=== PATIENT | female | born 1935 | race Asian ===

== ENCOUNTER 2016-11-22 13:56 | Emergency (ER) | payer MEDICARE, OTHER ==
[~2016-11-22] VITALS: Ht 152.4 cm; Wt 58.6 kg
[2016-11-22] MEDS ORDERED: ALLO300T PO (14:31)
[2016-11-22] MEDS ORDERED: ASPI-496 PO (14:31)
[2016-11-22] MEDS ORDERED: LISI2.5T PO (14:31)
[2016-11-22] MEDS ORDERED: SIMV5TAB5 PO (14:31)
[2016-11-22] MEDS ORDERED: ONDANSETRON 2MG/ML, 2ML IVPush ONE (15:00)
[2016-11-22] MEDS ORDERED: SODIUM CHLORIDE FLUSH 10ML SYR IVF ONE (15:00)
[2016-11-22] MEDS ORDERED: MORPHINE SULFATE 4 MG/ML, 1ML IVPush PRN (15:00)
[2016-11-22] MEDS ORDERED: SODIUM CHLORIDE 0.9% 1,000ML IVBOLUS ONE (15:00)
[2016-11-22] MEDS ORDERED: MORPHINE SULFATE 4 MG/ML, 1ML ONE (16:18)
[2016-11-22] MEDS ORDERED: ONDANSETRON 2MG/ML, 2ML ONE (16:18)
[2016-11-22 16:50] LABS: ASPARTATE AMINO TRANSFERASE 37 U/L (15-37); BLOOD UREA NITROGEN 23 mg/dL (7-18)
[2016-11-22 16:59] LABS: IS PT STATUS REG ER OR PRE ER? YES
[2016-11-22 17:16] LABS: HEMOGLOBIN 11.8 g/dL (11.7-16.4)
[2016-11-22 19:23] VITALS: BP 129/78
== END 2016-11-22 19:49 | disposition home or self-care (01) ==
LOC: ED 14:51
DX: R51 Headache (principal); R53.1 Weakness; I10 Essential (primary) hypertension; E78.5 Hyperlipidemia, unspecified; M10.9 Gout, unspecified; Z90.49 Acquired absence of other specified parts of digestive tract
CPT/HCPCS: 36415; 70450; 80053; 83690; 84484; 85025; 85610; 85730; 93005; 96361; 96374; 96375; 99285; J2405; J7030

== ENCOUNTER 2018-11-09 17:12 | Inpatient (IN) | payer MEDICARE, OTHER ==
[~2018-11-09] VITALS: Ht 154.9 cm; Wt 63.0 kg
[~2018-11-09 17:12] MED LIST: ALLO300T PO; ASPI-496 PO; LISI2.5T PO; SIMV5TAB14 PO
[2018-11-09] MEDS ORDERED: LABETALOL 5MG/ML, 20ML IVPush ONE (17:30)
[2018-11-09 17:43] LABS: BASOPHILS # (AUTO) 0.04 x10^3/uL (0-0.1); BASOPHILS % (AUTO) 1 % (0-1); EOSINOPHILS # (AUTO) 0.04 x10^3/uL (0-0.4); EOSINOPHILS % (AUTO) 1 % (1-7); LYMPHOCYTES # (AUTO) 2.64 x10^3/uL (1-3.4); LYMPHOCYTES % (AUTO) 40 % (22-44); MD NO; MEAN CORPUSCULAR HEMOGLOBIN 32.3 pg (27.0-34.8); MEAN CORPUSCULAR HGB CONC 33.7 g/dL (32.4-35.8); MEAN CORPUSCULAR VOLUME 95.9 fL (80-100); MONOCYTES # (AUTO) 0.33 x10^3/uL (0.2-0.8); MONOCYTES % (AUTO) 5 % (2-9); NEUTROPHILS # (AUTO) 3.62 x10^3/uL (1.8-6.8); NEUTROPHILS % (AUTO) 54 % (42-75); PLATELET COUNT 198 x10^3/uL (130-400); RED CELL DISTRIBUTION WIDTH 14.1 % (9.6-15.2)
[2018-11-09 17:57] LABS: MICROSCOPIC AUTO
[2018-11-09 17:59] LABS: CULTURE INDICATED? YES
[2018-11-09 18:04] LABS: ALBUMIN 4.2 g/dL (3.4-5.0); ANION GAP 10 mmol/L (5-15); CALCIUM 9.3 mg/dL (8.5-10.1); CHLORIDE 105 mmol/L (98-107)
[2018-11-09 18:09] LABS: ALANINE AMINOTRANSFERASE 34 U/L (12-78); ALKALINE PHOSPHATASE 103 U/L (45-117); BILIRUBIN,TOTAL 0.6 mg/dL (0.2-1.0); CREATININE 1.12 mg/dL (0.55-1.02); T4 (THYROXINE) 9.9 mcg/dL (4.8-13.9); TROPONIN I < 0.015 ng/mL (0.000-0.045)
--- NOTE | 2018-11-09 18:12 | NUR ---
IMPROVEMENT IN BP WITH LABETOLOL. PT TO CT
[2018-11-09] MEDS ORDERED: OMNIPAQUE 350 MG/ML, 100ML BOTTLE ONE (19:04)
--- NOTE | 2018-11-09 19:10 | NUR ---
UPON RETURN FROM CT, PLACED BACK ON MONITOR. NO TREMORS NOTED AT THIS TIME
--- NOTE | 2018-11-09 19:51 | NUR ---
RE-EVALUATING PT AND SPEAKING WITH HER ABOUT INTENTION TO ADMIT
[2018-11-09] MEDS ORDERED: LISI-170 PO (20:08)
[2018-11-09] MEDS ORDERED: TRAM-47 PO (20:08)
[2018-11-09] MEDS ORDERED: MELO15TA6 PO (20:08)
[2018-11-09] MEDS ORDERED: SIMV40TA3 PO (20:08)
--- NOTE | 2018-11-09 20:59 | NUR ---
RPT TO CHANA ACUNA
[2018-11-09] MEDS ORDERED: hydrALAzine 20 MG/ML, 1ML IVPush PRN (21:00)
[2018-11-09] MEDS ORDERED: BISACODYL 10 MG SUPP PR PRN (21:00)
[2018-11-09] MEDS ORDERED: ONDANSETRON 2MG/ML, 2ML IVPush PRN (21:00)
[2018-11-09] MEDS ORDERED: LABETALOL 5MG/ML, 20ML IVPush PRN (21:00)
[2018-11-09] MEDS ORDERED: PROMETHAZINE 25 MG/ML, 1ML IM PRN (21:00)
[2018-11-09] MEDS ORDERED: POLYETHYLENE GLYCOL 17 GM PACKET PO PRN (21:00)
[2018-11-09] MEDS ORDERED: ONDANSETRON ODT 4 MG PO PRN (21:00)
[2018-11-09] MEDS ORDERED: morphine SULFATE 10 MG/ML, 1ML IVPush PRN (21:00)
[2018-11-09] MEDS: CARVEDILOL 3.125 MG TABLET PO SCH (21:00)
[2018-11-09] MEDS ORDERED: ACETAMINOPHEN 325 MG TABLET PO PRN (21:00)
[2018-11-09 21:37] LABS: FREE T4 (FREE THYROXINE) 0.94 ng/dL (0.76-1.46)
[2018-11-09 21:52] LABS: HEMOGLOBIN A1C 5.5 % (4.2-6.3)
[2018-11-09 22:00] VITALS: BP 176/87
[2018-11-09] MEDS: AMLODIPINE 5 MG TABLET PO SCH (23:14)
[2018-11-09] MEDS: CEFTRIAXONE PMX 1GM/50ML 50 ML IV SCH (23:14)
[2018-11-09] MEDS: SIMVASTATIN 20 MG TABLET PO SCH (23:14)
[2018-11-09] MEDS: HEPARIN 5,000 UNITS/ML, 1ML SQ SCH (23:14)
[2018-11-10 00:22] VITALS: BP 163/83
[2018-11-10 05:16] LABS: BASOPHILS # (AUTO) 0.02 x10^3/uL (0-0.1); BASOPHILS % (AUTO) 0 % (0-1); EOSINOPHILS # (AUTO) 0.06 x10^3/uL (0-0.4); EOSINOPHILS % (AUTO) 1 % (1-7); LYMPHOCYTES % (AUTO) 34 % (22-44); MD NO; MEAN CORPUSCULAR HEMOGLOBIN 32.2 pg (27.0-34.8); MEAN CORPUSCULAR HGB CONC 33.4 g/dL (32.4-35.8); MEAN CORPUSCULAR VOLUME 96.5 fL (80-100); MEAN PLATELET VOLUME 7.2 fL (7.4-10.4); MONOCYTES # (AUTO) 0.44 x10^3/uL (0.2-0.8); MONOCYTES % (AUTO) 8 % (2-9); NEUTROPHILS # (AUTO) 3.04 x10^3/uL (1.8-6.8); NEUTROPHILS % (AUTO) 57 % (42-75); PLATELET COUNT 193 x10^3/uL (130-400); RED BLOOD COUNT 3.89 x10^6/uL (3.82-5.3); RED CELL DISTRIBUTION WIDTH 14.3 % (9.6-15.2)
[2018-11-10 05:29] LABS: CHLORIDE 107 mmol/L (98-107)
[2018-11-10 05:38] LABS: ALANINE AMINOTRANSFERASE 30 U/L (12-78); ALBUMIN 3.7 g/dL (3.4-5.0); ALKALINE PHOSPHATASE 93 U/L (45-117); ANION GAP 7 mmol/L (5-15); BILIRUBIN,TOTAL 0.7 mg/dL (0.2-1.0); CHOLESTEROL, TOTAL 155 mg/dL (140-239); CREATININE 0.95 mg/dL (0.55-1.02); HDL CHOL % 33 % (28-40); HDL CHOLESTEROL (DIRECT) 51 mg/dL (40-60); LDL CHOLESTEROL,CALCULATED 60 mg/dL (54-169); LDL/HDL RATIO 1.2 (0.5-3.0); TRIGLYCERIDES 218 mg/dL (50-200); VLDL CHOLESTEROL 44 mg/dL (0-25)
[2018-11-10 05:58] VITALS: BP 166/84
[2018-11-10] MEDS: CARVEDILOL 3.125 MG TABLET PO SCH (06:02)
[2018-11-10 08:57] VITALS: BP 143/83
[2018-11-10] MEDS ORDERED: LISINOPRIL 20 MG TABLET PO SCH (09:00)
[2018-11-10] MEDS: SENNA/DOCUSATE TABLET PO SCH (09:00)
[2018-11-10] MEDS: HEPARIN 5,000 UNITS/ML, 1ML SQ SCH ×2 (09:16→18:02)
[2018-11-10] MEDS: ALLOPURINOL 300 MG TABLET PO SCH (09:17)
[2018-11-10] MEDS: ASPIRIN 81 MG TABLET EC PO SCH (09:17)
[2018-11-10] MEDS: LISINOPRIL 20 MG TABLET PO SCH ×2 (09:17→21:02)
[2018-11-10] MEDS: AMLODIPINE 5 MG TABLET PO SCH ×2 (09:17→21:01)
[2018-11-10 15:03] VITALS: BP 133/75
[2018-11-10] MEDS ORDERED: CARVEDILOL 12.5 MG TABLET ONE (15:32)
[2018-11-10] MEDS ORDERED: CARVEDILOL 12.5 MG TABLET PO SCH (18:00)
[2018-11-10 18:01] VITALS: BP 144/87
[2018-11-10 19:06] VITALS: BP 133/78
[2018-11-10] MEDS ORDERED: CHLORTHALIDONE 25 MG TABLET PO SCH (20:00)
[2018-11-10] MEDS: CEFTRIAXONE PMX 1GM/50ML 50 ML IV SCH (21:01)
[2018-11-10] MEDS: SIMVASTATIN 20 MG TABLET PO SCH (21:01)
[2018-11-11] MEDS: HEPARIN 5,000 UNITS/ML, 1ML SQ SCH ×2 (00:55→10:18)
[2018-11-11 01:12] VITALS: BP 144/74
[2018-11-11 05:42] LABS: BASOPHILS # (AUTO) 0.01 x10^3/uL (0-0.1); BASOPHILS % (AUTO) 0 % (0-1); EOSINOPHILS % (AUTO) 2 % (1-7); LYMPHOCYTES # (AUTO) 2.07 x10^3/uL (1-3.4); LYMPHOCYTES % (AUTO) 37 % (22-44); MD NO; MEAN CORPUSCULAR HEMOGLOBIN 32.4 pg (27.0-34.8); MEAN CORPUSCULAR HGB CONC 33.6 g/dL (32.4-35.8); MEAN CORPUSCULAR VOLUME 96.5 fL (80-100); MEAN PLATELET VOLUME 7.4 fL (7.4-10.4); MONOCYTES # (AUTO) 0.37 x10^3/uL (0.2-0.8); MONOCYTES % (AUTO) 7 % (2-9); NEUTROPHILS % (AUTO) 54 % (42-75); PLATELET COUNT 185 x10^3/uL (130-400); RED BLOOD COUNT 4.24 x10^6/uL (3.82-5.3); RED CELL DISTRIBUTION WIDTH 14.3 % (9.6-15.2)
[2018-11-11 05:53] LABS: ALBUMIN 3.8 g/dL (3.4-5.0); ANION GAP 6 mmol/L (5-15); CALCIUM 9.1 mg/dL (8.5-10.1); CHLORIDE 108 mmol/L (98-107)
[2018-11-11 05:54] LABS: CREATININE 1.01 mg/dL (0.55-1.02)
[2018-11-11] MEDS ORDERED: CARVEDILOL 25 MG TABLET PO SCH (06:00)
[2018-11-11 07:00] VITALS: BP 115/72
[2018-11-11] MEDS ORDERED: CEFDINIR 300 MG CAPSULE PO SCH (09:00)
[2018-11-11] MEDS: ASPIRIN 81 MG TABLET EC PO SCH (10:17)
[2018-11-11] MEDS: LISINOPRIL 20 MG TABLET PO SCH (10:17)
[2018-11-11] MEDS: ALLOPURINOL 300 MG TABLET PO SCH (10:17)
[2018-11-11] MEDS: AMLODIPINE 5 MG TABLET PO SCH (10:17)
[2018-11-11] MEDS: SENNA/DOCUSATE TABLET PO SCH (10:18)
[2018-11-11] MEDS ORDERED: ATOR20TA37 PO (11:00)
[2018-11-11] MEDS ORDERED: CARV25TA12 PO (11:00)
[2018-11-11] MEDS ORDERED: AMLO-150 PO (11:00)
[2018-11-11] MEDS ORDERED: CEFD300C37 PO (11:00)
[2018-11-11] MEDS ORDERED: LISI-170 PO (11:00)
[2018-11-11 12:21] VITALS: BP 105/67
== END 2018-11-11 14:40 | disposition home health service (06) | DRG 70 ==
LOC: ED 18:55 → EDIP 19:34 → 5SO 21:18 → DCLOUNGE 11-11 14:40
PROVIDERS: ADMIT Internal Medicine; ATTEND Internal Medicine
PROC: 0T9B70Z Drainage of Bladder with Drainage Device, Via Natural or Artificial Opening (ICD-10-PCS; principal; 2018-11-09)
DX: G93.41 Metabolic encephalopathy (principal); N17.0 Acute kidney failure with tubular necrosis; N39.0 Urinary tract infection, site not specified; I16.0 Hypertensive urgency; E78.5 Hyperlipidemia, unspecified; G89.29 Other chronic pain; I10 Essential (primary) hypertension; K57.10 Diverticulosis of small intestine without perforation or abscess without bleeding; M10.9 Gout, unspecified; R31.29 Other microscopic hematuria; Z79.899 Other long term (current) drug therapy; Z90.710 Acquired absence of both cervix and uterus
CPT/HCPCS: 36415; 70450; 71045; 71275; 74175; 80048; 80053; 80061; 81001; 82040; 83036; 83605; 83735; 83880; 84100; 84436; 84439; 84443; 84484; 85025; 87040; 87077; 87086; 87186; 93005; 93306; 96374; 99291; G0378; J0696; J1644; Q9967

== ENCOUNTER 2020-10-07 01:59 | Emergency (ER) | payer MEDICARE, OTHER ==
[~2020-10-07] VITALS: Ht 152.4 cm; Wt 71.0 kg
[~2020-10-07 01:59] MED LIST changes: +AMLO-150 PO; +ATOR20TA37 PO; +CARV25TA12 PO; +CEFD300C37 PO; +LISI-170 PO; +MELO15TA6 PO; +SIMV40TA20 PO; +TRAM-47 PO
[2020-10-07 02:04] VITALS: BP 147/76
[2020-10-07] MEDS ORDERED: SILVER NITRATE STICK TP ONE (02:13)
[2020-10-07] MEDS ORDERED: NEOSPORIN OINT. PKT 1 PACKET ONE (02:33)
== END 2020-10-07 03:49 | disposition home or self-care (01) ==
LOC: ED 02:58
DX: R04.0 Epistaxis (principal); R94.31 Abnormal electrocardiogram [ECG] [EKG]; I10 Essential (primary) hypertension; E78.5 Hyperlipidemia, unspecified
CPT/HCPCS: 30901; 93005; 99284